=== PATIENT | female | born 1940 | race Caucasian/White ===

== ENCOUNTER 2024-03-15 15:15 | Inpatient (IN) ==
[2024-03-15] MEDS: Heparin DRIP 25,000 UNITS BAG 25,000 UNITS/250 ML BAG IV SCH (16:43)
[2024-03-15] MEDS: Heparin 5000 UNITS/ML 1 mL VIAL IV SCH (16:44)
[2024-03-15] MEDS ORDERED: Sulfur Hexaflouride MICROSPHR 25 MG VIAL ONE (16:54)
[2024-03-15 17:41] LABS: ABS Lymphocytes 1.1 10^3/uL (1.0-4.8); ABS Monocytes 1.5 10^3/uL (0.0-0.9); ABS Neutrophils 11.5 10^3/uL (1.5-7.6); Eosinophil % 0.2 %; Hematocrit 35.6 % (35-45); Hemoglobin 11.8 g/dL (11.5-14.3); Lymphocyte % 7.8 %; Mean Corpuscular Hemoglobin 32.7 pg (27-33); Mean Corpuscular Hgb Conc 33.1 g/dL (31-36); Mean Corpuscular Volume 98.7 fL (80-97); Mean Platelet Volume 9.4 fL (7.5-11.2); Platelet Count 109 10^3/uL (150-450); Red Blood Count 3.61 10^6/uL (3.63-4.92); Red Cell Distribution Width 14.4 % (12-17); White Blood Count 14.1 10^3/uL (3.8-11.8)
[2024-03-15 18:05] LABS: High Sens Troponin Baseline 1964 pg/mL (<15)
[2024-03-15 18:19] LABS: High Sensitivity Troponin 1 Hr 2477 pg/mL (<15)
[2024-03-15 18:56] LABS: ALT 14 U/L (7-52); Albumin 3.8 g/dL (3.2-5.2); Albumin/Globulin Ratio 1.2 (1-3); Alkaline Phosphatase 61 U/L (35-149); Anion Gap 9 mmol/L (2-16); Blood Urea Nitrogen 16 mg/dL (6-24); C Reactive Protein 54.94 mg/L (<8.01); CO2 Carbon Dioxide 24 mmol/L (22-32); Chloride 103 mmol/L (101-111); Creatinine, Serum 1.02 mg/dL (0.51-0.95); Globulin 3.1 g/dL (2-4); Glucose 130 mg/dL (70-100); Sodium 136 mmol/L (135-145); Total Bilirubin 1.5 mg/dL (0.2-1.0); Total Protein 6.9 g/dL (6.4-8.9); eGFR CKD-EPI 55.3 (>60)
[2024-03-15 23:42] LABS: Potassium Redraw 3.8 mmol/L (3.5-5.0)
[2024-03-16 00:40] LABS: C Reactive Protein 79.27 mg/L (<8.01)
[2024-03-16 00:58] LABS: Urine Appearance Clear; Urine Bilirubin Negative (Negative); Urine Blood 1+ (Negative); Urine Color Light-Yellow; Urine Glucose Negative (Negative); Urine Ketones Negative (Negative); Urine Nitrite Negative (Negative); Urine Protein Negative (Negative); Urine Specific Gravity 1.043 (1.002-1.030); Urine Urobilinogen Negative (Negative)
[2024-03-16 01:02] LABS: Urine Bacteria Absent /HPF (Absent); Urine Red Blood Cell Trace(0-2/hpf) /HPF (0-Trace); Urine White Blood Cell Absent /HPF (0-Trace)
[2024-03-16] MEDS ORDERED: Dextrose 50% Syringe 50 ml 25 GM/50 ML SYRINGE IV PUSH PRN (01:22)
[2024-03-16 04:18] LABS: High Sensitivity Troponin 1 Hr 1674 pg/mL (<15)
[2024-03-16 06:31] LABS: ABS Eosinophils 0.1 10^3/uL (0.0-0.5); ABS Lymphocytes 1.1 10^3/uL (1.0-4.8); ABS Monocytes 0.7 10^3/uL (0.0-0.9); ABS Neutrophils 4.6 10^3/uL (1.5-7.6); Eosinophil % 2.2 %; Hematocrit 31.3 % (35-45); Hemoglobin 10.6 g/dL (11.5-14.3); Lymphocyte % 17.2 %; Mean Corpuscular Hemoglobin 32.8 pg (27-33); Mean Corpuscular Hgb Conc 33.7 g/dL (31-36); Mean Corpuscular Volume 97.3 fL (80-97); Mean Platelet Volume 9.3 fL (7.5-11.2); Nucleated Red Blood Cells % 0.1 %/100WBC (0.0-0.8); Platelet Count 102 10^3/uL (150-450); Red Blood Count 3.22 10^6/uL (3.63-4.92); Red Cell Distribution Width 13.7 % (12-17); White Blood Count 6.6 10^3/uL (3.8-11.8)
[2024-03-16 08:25] LABS: Albumin 3.2 g/dL (3.2-5.2); Albumin/Globulin Ratio 1.1 (1-3); Calcium 8.4 mg/dL (8.6-10.3); Creatinine, Serum 1.05 mg/dL (0.51-0.95); Globulin 2.8 g/dL (2-4); Magnesium 1.8 mg/dL (1.9-2.7); Potassium 3.9 mmol/L (3.5-5.0); Total Bilirubin 1.1 mg/dL (0.2-1.0); eGFR CKD-EPI 53.4 (>60)
[2024-03-16] MEDS: Sulfur Hexaflouride MICROSPHR 25 MG VIAL IV ONE (18:04)
[2024-03-17 06:20] LABS: ABS Eosinophils 0.2 10^3/uL (0.0-0.5); ABS Lymphocytes 1.3 10^3/uL (1.0-4.8); ABS Monocytes 1.1 10^3/uL (0.0-0.9); ABS Neutrophils 4.8 10^3/uL (1.5-7.6); Eosinophil % 2.5 %; Hematocrit 32.5 % (35-45); Hemoglobin 11.1 g/dL (11.5-14.3); Mean Corpuscular Hemoglobin 33.2 pg (27-33); Mean Corpuscular Hgb Conc 34.1 g/dL (31-36); Mean Corpuscular Volume 97.4 fL (80-97); Mean Platelet Volume 9.2 fL (7.5-11.2); Platelet Count 113 10^3/uL (150-450); Red Blood Count 3.33 10^6/uL (3.63-4.92); Red Cell Distribution Width 13.8 % (12-17); White Blood Count 7.4 10^3/uL (3.8-11.8)
[2024-03-17 08:53] LABS: Calcium 8.4 mg/dL (8.6-10.3); Creatinine, Serum 0.88 mg/dL (0.51-0.95); Magnesium 1.8 mg/dL (1.9-2.7); Potassium 3.6 mmol/L (3.5-5.0)
[2024-03-18 06:00] LABS: ABS Eosinophils 0.2 10^3/uL (0.0-0.5); ABS Monocytes 1.2 10^3/uL (0.0-0.9); Hematocrit 32.7 % (35-45); Hemoglobin 11.2 g/dL (11.5-14.3); Lymphocyte % 15.2 %; Mean Corpuscular Hemoglobin 33.5 pg (27-33); Mean Corpuscular Hgb Conc 34.1 g/dL (31-36); Mean Corpuscular Volume 98.1 fL (80-97); Mean Platelet Volume 9.5 fL (7.5-11.2); Platelet Count 111 10^3/uL (150-450); Red Blood Count 3.33 10^6/uL (3.63-4.92); Red Cell Distribution Width 13.9 % (12-17); White Blood Count 6.4 10^3/uL (3.8-11.8)
[2024-03-18 06:26] LABS: Calcium 8.4 mg/dL (8.6-10.3); Creatinine, Serum 0.96 mg/dL (0.51-0.95); Magnesium 1.8 mg/dL (1.9-2.7); Potassium 3.6 mmol/L (3.5-5.0); eGFR CKD-EPI 59.4 (>60)
[2024-03-18] MEDS: Magnesium Sulfate 2 gm BAG 2 GM/50 ML BAG IVPB ONE (07:08)
[2024-03-18] MEDS: Potassium EFFERVES 25 meq TAB PO SCH (09:04)
[2024-03-18] MEDS: KCL 10 MEQ/50 ML IVPREMIX 10 MEQ/50 ML BAG IV SCH (09:07)
[2024-03-18] MEDS: Naphazoline/Pheniramine OPTH 5 ML BTL BOTH EYES SCH (11:46)
[2024-03-18 13:44] VITALS: BP 104/46
== END 2024-03-18 18:19 | disposition home or self-care (01) | DRG 281 ==
LOC: ED 15:15 → EDHOLD 15:15 → SUATTDRO 20:43 → OBSVTOIN 20:43 → MEDTELE 03-16 15:28
PROVIDERS: ADMIT Internal Medicine; ATTEND Internal Medicine